=== PATIENT | female | born 1965 | race Caucasian/White ===

== ENCOUNTER 2016-08-10 15:49 | Emergency (ER) | payer SELFPAY ==
[~2016-08-10] VITALS: Ht 158.8 cm; Wt 79.2 kg
[~2016-08-10 15:49] MED LIST: ALBU17AE23 IH
--- OUTSIDE RECORDS SUMMARY | 2016-08-10 15:53 | XMS REPORT ---
Author Author [facility]. Organization [facility] Address [address] [place] [address] Phone [phone] Summary purpose CCDA Sent to [facility] Chief Complaint and Reason for Visit No authorized Reason for Visit (Admitting Diagnosis) is available for this visit. Problem list No authorized problems tracked for continuity of care are available for this visit. Encounters No authorized problems tracked for encounter diagnoses are available for this visit. Medications No medications recorded for this patient visit Allergies, adverse reactions, alerts Allergen Category Ingredient Status Reaction Severity Onset No Known Drug Allergy No Known Drug Allergy No Known Drug Allergy Active Immunizations No immunizations recorded for this patient visit Relevant diagnostic tests and/or laboratory data No authorized results are available for this patient visit History of procedures No procedures recorded for this patient visit. Functional status Cognitive Status Finding Observation Time Level of Consciousne Alert :08 Oriented to Person Yes [id number] Yes [id number] Oriented to Time Yes :08 Vital signs Type Value Date Respirations 14 :11 Pulse 56 :11 O2 Saturation 95% :11 Systolic Blood Press 135mm/HG :11 Diastolic Blood Pres 83mm/HG :11 Temperature (Fahr) 98Degrees :08 Social history Type Value Smoking Status CURRENT [employer] Treatment Plan No treatment plan text is available for this visit. Hospital discharge instructions No discharge instruction text is available for this visit.
[2016-08-10 15:54] VITALS: Ht 158.8 cm; Wt 79.2 kg
[2016-08-10] MEDS ORDERED: NO ROUTINE MEDS (16:04)
[2016-08-10] MEDS ORDERED: IBUP-1724 PO (16:04)
--- NOTE | 2016-08-10 16:53 | NUR ---
RETURNED FROM RADIOLOGY
--- NOTE | 2016-08-10 17:03 | ERPDOC ---
Departure Disposition Decision Date: Aug 10, 2016 Disposition Decision Time: 17:44 Disposition: 01 DISCHARGED HOME, SELF-CARE Impression Impression Impression: Primary Impression: Sciatica Laterality: unspecified laterality Qualified Codes: M54.30 - Sciatica, unspecified side Severity: Mild Condition: Improved Seen By: Physician only Referrals: [facility] 2 Days Patient Instructions: Sciatica (ED) Problems/Meds/Labs Reviewed?: Yes Medications reviewed and manag: Yes Follow up care ordered?: Yes Mental Status: Alert, Oriented Scripts Naproxen (Naprosyn) 500 Mg Tablet 1 TAB PO BID Y for PAIN for 10 Days, #20 TAB 0 Refills Prov: ALDAIR COOK DO 08/10/16 Hydrocodone/Acetaminophen (Nada 5-325 Tablet) 5-325 Tablet 1 TAB PO Q4HR Y for PAIN for 3 Days, #18 TAB 0 Refills Prov: ALDAIR COOK DO 08/10/16 Cyclobenzaprine HCl (Cyclobenzaprine HCl) 10 Mg Tablet 10 MG PO TID Y for MUSCLE SPASM for 5 Days, #15 TAB 0 Refills Prov: ALDAIR COOK DO 08/10/16 HPI - Back Pain General Chief Complaint: Low Back Pain or Injury Stated Complaint: BACK PAIN Time Seen by Provider: 16:00 Source: patient Exam Limitations: no limitations HPI - Back Pain Initial Comments 51-year-old female presents to the emergency department with a chief complaint of straining her lower back. Patient noted onset of discomfort after unloading boxes at work. Patient notes pain and spasm in the right lower lumbar area of her back. She states that the pain radiates to her right leg. Pain is moderate. Pain is sharp. She notes that the pain improves with rest and positioning. Pain increases with movement. Patient symptoms have been persistent in nature since onset. She was at home when she noted onset of symptoms. No other complaints or associated symptoms. Patient has a history of similar symptoms in the past. Patient denies numbness, tingling, fever, chills, saddle anesthesia, focal weakness, loss of bowel or bladder control, anticoagulation, abdominal pain, IV drug abuse, recent procedures on the spine or other warning signs of back pain. Occurred At: home Onset/Timing: Gradual Allergies: Coded Allergies: No Known Allergies (Unverified , 08/10/16) Past History Past Medical History Pt denies signifigant PMH Surgical History Denies Surgeries Family History Family History: Negative Social History Smoking Status: Never smoker Substance Use Type: does not use Alcohol Intake: none Review of Systems Constitutional Constitutional: DENIES: chills, fever Eyes General: DENIES: erythema, exudate Lids/Accessories: DENIES: erythema, swelling Vision: DENIES: acuity, blurring ENMT Ears: DENIES: drainage, erythema Hearing: DENIES: hearing loss Balance: DENIES: ataxia, falling to one side Sinuses: DENIES: congestion, pain Nose: DENIES: nosebleeds, pain Mouth/Throat: DENIES: painful swallowing, sore throat Teeth: DENIES: pain Jaw: DENIES: pain Cardiovascular Cardiac: DENIES: chest pain, dyspnea on exertion Rhythm/Rate: DENIES: irregular beat, palpitations Vascular: DENIES: pedal edema, unilateral swelling Pulmonary Respiratory: DENIES: cough, dyspnea, pleuritic chest pain, sputum GI Upper Abdomen: DENIES: nausea, pain, vomiting Lower Abdomen: DENIES: diarrhea, pain General: DENIES: dysuria, pain Musculoskeletal General: tenderness, DENIES: weakness Integumentary Skin: DENIES: itching, rash Neurological General: DENIES: headache, numbness, weakness Psychiatric Psychiatric: DENIES: emotional instability, suicidal ideation/attempt Endocrine Endocrine: DENIES: polydipsia, polyphagia Hematologic/Lymphatic Hematologic/Lymphatic: DENIES: frequent nosebleeds, lymphadenopathy Allergic/Immunological Allergic/Immunoligical: DENIES: allergic reactions, hives Physical Exam General General Nourishment: well nourished, well developed, appears stated age, no acute distress, adult General Body Habitus: well groomed Vitals and Pain First Documented Vital Signs Date Time Temp Pulse Resp B/P Pulse Ox O2 Delivery O2 Flow Rate FiO2 08/10/16 15:54 98.3 67 20 186/91 95 Room Air Weight: Kilograms: 79.200 Height (feet): 5 Height (inches): 2.50 Triage Pain Scale: RN VS reviewed by Provider: Yes Normal Exams: Head: Normocephalic w/o trauma Eyes: Pupils are PERRLA w/ EOMI, No scleral icterus, irritation, or foreign bodies noted ENMT: No facial trauma, nasal exudates, pharyngeal erythema, or exudates are noted Dental: No fractured, loose, or missing teeth noted Neck: Full range of motion, without adenopathy, JVD, bruits or thyromegaly Chest/Resp: Clear all jean, with good airflow, and symmetry bilaterally CV: Regular rate and rhythm, without murmur or gallop, Pulses 2+ all extremities, capillary refill, <2 seconds all ext., no pedal edema noted Abdomen: Bowel sounds positive, soft, non-tender, non-distended, no hepatosplenomegaly, masses or bruits noted Lymphatic: No lymphadenopathy, or lymphedema noted Musculoskeletal: No tenderness, or deformity noted, good range of motion, all extremities Integumentary: No rashes, hives, or bruising noted, hair and nails, without abnormality Neurologic: Patient is alert, and oriented, cranial nerves, motor/sensory/ cerebellar, exams w/o gross deficits, to observation Psychiatric: Patient exhibits, appropriate attention, emotion and affect Musculoskeletal (brief) Comments Back - negative palpation over the right SI joint. Lumbar paraspinal muscle spasm with tenderness to palpation. No midline tenderness or deformity to palpation in the spine. Neurologic (brief) Comments Alert and oriented 4. CN 2-12 intact. sensation intact. strength normal. Gait normal. Normal motor. Normal coordination. Reflexes 2/4 in all extremities. Absent Babinski bilaterally. No focal neurologic deficit. Differential Diagnoses Considering: Compression Fracture, Fracture, Lumbar Sprain, Lumbar Strain Progress Results/Orders Orders Procedure Category Date Status Time Lumbar Spine 2-3 Views RAD 08/10/16 Resulted 16:35 Hydrocodone/Acetaminophen PHA 08/10/16 Complete (Nada 7.5/325 17:45 Medications Current ED Medications Acetaminophen/ Hydrocodone Bitart (Nada 7.5/325) 1 tab O ONCE PO Last administered on 08/10/16t 18:00; Start 08/10/16 at 17:45; Stop 08/10/16 at 17:46 ; Status DC Progress Progress Imaging discussed in detail with the patient and questions are answered. Patient is given analgesic pain medication with improvement of symptoms. Patient is discharged home in improved condition. Should follow up as instructed. Patient is to return to the emergency Department if her condition worsens or changes in any manner. Patient is agreement with the current plan of management. Patient's to follow-up as instructed. Prescriptions for Nada, and Naprosyn, and Flexeril are provided. Xray Xray : Xray: L-Spine Interpretation: Normal, Interpreted by Me, Reviewed Written Report ALDAIR COOK DO Aug 10, 2016 17:03
--- NOTE | 2016-08-10 17:08 | DI ---
Indication: ITS.REASON: Back pain radiating down the left leg starting this morning PROCEDURE: LUMBAR SPINE 3 VIEWS: Encounter: Initial Comparison: None Findings: No acute fracture or subluxation seen. Mild disk space narrowing at L3-L4. 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 Impression: No acute fracture. .
[2016-08-10] MEDS ORDERED: CYCL-375 PO (17:46)
[2016-08-10] MEDS ORDERED: HYDR-4246 PO (17:46)
[2016-08-10] MEDS ORDERED: NAPR500T PO (17:46)
[2016-08-10 18:00] VITALS: BP 166/80; PULSE 72; RESP 16; TEMP 97.3; O2SAT 96
== END 2016-08-10 18:00 | disposition home or self-care (01) ==
LOC: ED 15:49
DX: M54.41 Lumbago with sciatica, right side (principal)